=== PATIENT | male | born 1940 | race Caucasian/White ===

== ENCOUNTER → 2022-06-10 11:15 | Outpatient (CLI) | payer OTHER, SELFPAY ==
--- NOTE | 2022-06-10 | DI.CT.S_ITS ---
PROCEDURE: CT CHEST W CON INDICATIONS: ABNORMAL CHEST XRAY TECHNIQUE: After the administration of intravenous contrast, 5 mm thick sections acquired from the pulmonary apices to the posterior costophrenic angles. 1 mm axial lung, 5 mm thick coronal and sagittal reformats and 7 mm axial MIP were acquired. For radiation dose reduction, the following was used: automated exposure control, adjustment of mA and/or kV according to patient size. COMPARISON: [facility], RG, XR CXR 2V, 05/16/2022, 15:39. FINDINGS: Image quality: Excellent. Lungs and pleura: Severe emphysema. No pleural effusions or pneumothorax. There are multiple pulmonary nodules, for example right upper lobe nodule (3/197) measures 7 millimeters. Scattered scarring/atelectasis. There is a calcified pleural plaque at the medial right base. Mediastinum: Normal heart size. Coronary calcifications are present. Both calcified and noncalcified plaque are seen in the aorta, particularly at the arch. Bones and chest wall: Indeterminate lucency at the inferior endplate of T6. No definitemalignant osseous lesion. No vertebral body compression fractures. No axillary or supraclavicular adenopathy by size criteria. Thyroid gland within normal limits. Abdomen: Visualized upper abdominal solid organs appear normal. Upper abdominal bowel loops are normal in caliber. Right upper pole renal cyst. Indeterminate subcapsular fluid adjacent to the spleen. IMPRESSION: Severe emphysema. No airspace consolidation or pleural effusion. Multiple pulmonary nodules are present, consider CT in 6-12 months for follow-up. Incidentally noted calcified pleural plaque at the medial right base. Aortic atherosclerosis, including areas of eccentric soft plaque. Coronary calcifications. Other incidental findings as noted above can also be followed on subsequent imaging. Dictated by: Geo Chandra M.D. on 06/10/2022 at 15:28 Approved by: Geo Chandra M.D. on 06/10/2022 at 15:37
[2022-06-10 11:59] LABS: BUN Creatinine Ratio 26.6 (6-22); Blood Urea Nitrogen 21 mg/dL (9-20); Carbon Dioxide 29 mmol/L (22-32); Chloride 105 mmol/L (98-107); Estimated Glomerular Filt Rate > 60 mL/min (>60); Glucose 92 mg/dL (80-110); HEMOLYSIS < 15 (0-50); Potassium 4.4 mmol/L (3.4-5.1); Sodium 139 mmol/L (137-145)
== END ==
PROVIDERS: PCP Internal Medicine; Referring Provider Internal Medicine; Visit Provider Internal Medicine
DX: R91.8 Other nonspecific abnormal finding of lung field (principal); J43.9 Emphysema, unspecified; J92.9 Pleural plaque without asbestos; I70.0 Atherosclerosis of aorta; I25.10 Atherosclerotic heart disease of native coronary artery without angina pectoris; Z79.899 Other long term (current) drug therapy
CPT/HCPCS: 36415; 71260; 80048; Q9967